=== PATIENT | male | born 1950 | race Caucasian/White ===

== ENCOUNTER 2020-01-03 20:29 | Inpatient (IN) | payer OTHER, MEDICARE ==
[~2020-01-03] VITALS: Ht 172.7 cm; Wt 88.9 kg
[2020-01-03 20:30] VITALS: BP 240/125
[2020-01-03 21:14] LABS: BE -9.1 mmol/L (-2 to +3); PO2 86.3 mmHg (75.0-100.0)
[2020-01-03 21:18] LABS: pH 7.066 (7.340-7.450)
[2020-01-03 21:22] LABS: ABSOLUTE EOSINOPHILS 0.2 thou/uL (0.0-0.7); ABSOLUTE LYMPHOCYTES 3.8 thou/uL (0.8-5.3); ABSOLUTE MONOCYTES 0.6 thou/uL (0.0-1.2); ABSOLUTE NEUTROPHILS 4.4 thou/uL (1.6-8.1); BASOPHILS 0.6 %; EOSINOPHILS 2.2 %; HEMATOCRIT 47.2 % (42.0-52.0); HEMOGLOBIN 16.2 gm/dL (14.0-18.0); LYMPHOCYTES 42.1 %; MCHC 34.3 g/dL (28.0-37.0); MCV 93.4 fL (80.0-100.0); MONOCYTES 6.3 %; MPV 10.2 fl. (7.2-11.1); NUCLEATED RBCS 0 /100WBC; PLATELET COUNT* 144 thou/uL (150-400); POLYS 48.8 %; RBC 5.06 mil/uL (4.50-6.00); RDW-CV 14.3 % (10.5-14.5)
[2020-01-03 21:27] LABS: CALCIUM 8.3 mg/dL (8.5-10.1); CREATININE 1.7 mg/dL (0.6-1.3); POTASSIUM 4.4 mmol/L (3.5-5.1)
[2020-01-03 21:29] LABS: APTT 24.3 Seconds (25.0-31.3); INR 1.1; PROTIME 11.4 Seconds (9.20-11.50)
[2020-01-03 21:39] LABS: ALBUMIN 3.8 g/dL (3.4-5.0); TOTAL BILIRUBIN 0.5 mg/dL (<0.1-1.0); TOTAL PROTEIN 7.4 g/dL (6.4-8.2)
[2020-01-03] MEDS ORDERED: DURLAZA162.5 MG PO (22:32)
[2020-01-03] MEDS ORDERED: JANUVIA100 MG PO (22:33)
[2020-01-03] MEDS ORDERED: FENOFIBRATE PO (22:34)
[2020-01-03] MEDS ORDERED: LIPITOR40 MG PO (22:34)
[2020-01-03] MEDS ORDERED: HYDROCHLORIZIDE PO (22:35)
[2020-01-03 22:36] LABS: BE -9.6 mmol/L (-2 to +3)
[2020-01-03] MEDS ORDERED: AVAPRO 150 MG150 MG PO (22:36)
[2020-01-03 22:37] LABS: pH 7.075 (7.340-7.450)
[2020-01-03] MEDS ORDERED: CARVEDILOL PO (22:37)
[2020-01-03 22:38] LABS: PCO2 77.9 mmHg (35.0-45.0); PO2 170.3 mmHg (75.0-100.0)
[2020-01-03] MEDS ORDERED: METFORMIN HCL500 M3 PO (22:38)
[2020-01-03] MEDS ORDERED: CATAPRES0.2 MG PO (22:38)
[2020-01-03 22:54] VITALS: BP 183/85
[2020-01-03 23:31] VITALS: BP 147/89
[2020-01-03 23:46] VITALS: BP 138/87
[2020-01-04] VITALS (52 sets, daily range): BP systolic 117–181; BP diastolic 56–98
[2020-01-04 06:16] LABS: BE -4.8 mmol/L (-2 to +3); PCO2 43.9 mmHg (35.0-45.0); pH 7.306 (7.340-7.450)
[2020-01-04 06:23] LABS: PO2 140.6 mmHg (75.0-100.0)
--- NOTE | 2020-01-04 10:18 | EKG ---
[place] [address] ELECTROCARDIOGRAM REPORT Name: WILBERT YANG Room: [address] ADM IN [facility].#: [id number] Admission: 01/03/20 Attend Phys: Brandy Da Silva, Discharge: Date of : 46 Date of Service: 01/03/202035 Report #: [id number] THIS REPORT FOR: //name// [facility] ED Test Date: 2020-01-03 Test Time: 20:36:48 Pat Name: WILBERT YANG Department: Room: [facility] Gender: M [employer] Technician: BROOKE : 1950 Requested By: Gen Pulido Order Number: [id number] MD: Ady Rubi Measurements Intervals [place] Rate: 77 P: 57 MA: 237 QRS: 47 QRSD: 146 T: 200 QT: 394 QTc: 446 Interpretive Statements Sinus rhythm Prolonged MA interval Probable left atrial enlargement Left bundle branch block Baseline wander in lead(s) II No previous ECG available for comparison Electronically Signed On 01-04-2020 10:18:20 CDT by Ady Rubi [email or web address] <ELECTRONICALLY SIGNED> By: Ady Rubi MD, FACC 01/04/20 1018 35 35 Ayd Rubi MD, [facility] /EPI
[2020-01-04 10:52] LABS: AMP/METHAMP Negative (Negative); BARBITURATES Negative (Negative); BENZODIAZEPINES Negative (Negative); COCAINE Negative (Negative); METHADONE Negative (Negative); OPIATES Negative (Negative); PCP Negative (Negative); THC POSITIVE (Negative)
[2020-01-04 12:27] LABS: MCHC 35.1 g/dL (28.0-37.0); MCV 91.2 fL (80.0-100.0); MPV 9.5 fl. (7.2-11.1); NUCLEATED RBCS 0 /100WBC; PLATELET COUNT* 92 thou/uL (150-400); RBC 4.38 mil/uL (4.50-6.00); WBC 6.6 thou/uL (4.0-11.0)
[2020-01-04 13:33] LABS: URINE BILIRUBIN NEGATIVE (Negative); URINE BLOOD NEGATIVE (Negative); URINE CLARITY CLEAR; URINE COLOR YELLOW; URINE GLUCOSE-RANDOM NEGATIVE (Negative); URINE KETONES TRACE (Negative); URINE LEUKOCYTES-REFLEX TRACE (Negative); URINE NITRITE-REFLEX NEGATIVE (Negative); URINE PROTEIN 1+ (Negative); URINE SPECIFIC GRAVITY 1.025 (1.005-1.030); URINE UROBILINOGEN 0.2 E.U./dl (0.2-1.0)
[2020-01-04 13:38] LABS: ABSOLUTE LYMPHOCYTES 0.4 thou/uL (0.8-5.3); ABSOLUTE MONOCYTES 0.1 thou/uL (0.0-1.2); ABSOLUTE NEUTROPHILS 6.1 thou/uL (1.6-8.1); ANISOCYTOSIS 1+; PLATELET ESTIMATE DECREASED; POIKILOCYTOSIS 1+
[2020-01-04 13:43] LABS: CREATININE 1.7 mg/dL (0.6-1.3); POTASSIUM 3.2 mmol/L (3.5-5.1)
[2020-01-04 13:52] LABS: SQUAMOUS >10 Many /LPF (0-3)
[2020-01-04 13:53] LABS: BACTERIA-REFLEX 1-9 Few /HPF (None Seen); CRYSTALS None Seen /LPF (None Seen); HYALINE CASTS 0-3 Few /LPF (None Seen); MUCUS None Seen strn/LPF (None Seen); URINE RBC 3-10 Few /HPF (0-2); URINE WBC-REFLEX 0-5 Rare /HPF (0-5)
[2020-01-04 13:53] LABS: ALBUMIN 3.4 g/dL (3.4-5.0); MAGNESIUM 1.6 mg/dL (1.8-2.4); PHOSPHORUS* 1.5 mg/dL (2.5-4.9); TOTAL BILIRUBIN 0.5 mg/dL (<0.1-1.0); TOTAL PROTEIN 6.4 g/dL (6.4-8.2)
--- NOTE | 2020-01-04 16:48 | 2DMMODE ---
[place] [address] 2 D/M-MODE ECHOCARDIOGRAM Name: WILBERT YANG Room: [address] ADM IN M.R.#: [id number] Admission: 01/03/20 Attend Phys: Brandy Da Silva, Discharge: Date of : 46 Date of Service: 01/04/20 1647 Report #: [id number] THIS REPORT FOR: cc: Kobe Loza,Kobe Henderson,Ady Scott MD [facility] ~ APPROVED REPORT Study performed: 01/04/2020 14:17:42 EXAM: Limited 2D, Doppler, and color-flow Echocardiogram Patient Location: Bedside BSA: 2.11 BP: 143/85 mmHg Other Information Study Quality: Adequate Indications Dyspnea 2D Dimensions IVSd: 21.61 (7-11mm) LVOT Diam: 22.43 (18-24mm) LVDd: 42.11 mm PWd: 13.45 (7-11mm) Ascending Ao: 31.04 (22-36mm) LVDs: 35.86 (25-40mm) Aortic Root: 27.34 mm Volumes Left Atrial Volume (Systole) LA ESV Index: 15.50 mL/m2 Aortic Valve AoV Peak Milo.: 1.07 m/s AO Peak Gr.: 4.57 mmHg LVOT Max P.71 mmHg AO Mean Gr.: 2.76 mmHg LVOT Mean P.62 mmHg LVOT Max V: 0.96 m/s AO V2 VTI: 16.86 cm LVOT Mean V: 0.57 m/s RORO (VTI): 4.22 cm2 LVOT V1 VTI: 18.03 cm Mitral Valve E/A Ratio: 1.13 MV Decel. Time: 234.13 [place] [address] 2 D/M-MODE ECHOCARDIOGRAM Name: WILBERT YANG Room: [address] IN [facility]#: [id number] Admission: 01/03/20 Attend Phys: Brandy Da Silva, Discharge: Date of : 46 Date of Service: 01/04/20 1647 Report #: [id number] MV E Max Milo.: 0.50 m/s MV PHT: 67.90 ms MVA (PHT): 3.24 cm2 Pulmonary Valve PV Peak Milo.: 1.40 m/s PV Peak Gr.: 7.83 mmHg Tricuspid Valve RAP Estimate: 5.00 mmHg TR Peak Gr.: 17.27 mmHg RVSP: 22.27 mmHg PA Pressure: 22.27 mmHg Left Ventricle The left ventricle is normal size. Mild concentric left ventricular hypertrophy. Left ventricular systolic function is borderline. Right Ventricle The right ventricle is normal size. The right ventricular systolic function is normal. Atria The left atrium size is normal. Interatrial septum not well visualized. The right atrium size is normal. Aortic Valve The Aortic valve is sclerotic. No aortic regurgitation is present. There is no aortic valvular stenosis. Mitral Valve The mitral valve is normal in structure. There is no mitral valve regurgitation noted. No evidence of mitral valve stenosis. Tricuspid Valve The tricuspid valve is normal in structure. Trace tricuspid regurgitation. Pulmonic Valve Pulmonic valve is not well visualized. There is no pulmonic valvular regurgitation. Great Vessels The aortic root is normal in size. Aortic arch is not visualized. IVC is normal in size and collapses >50% with inspiration[place] [address] 2 D/M-MODE ECHOCARDIOGRAM Name: JEISON YANGASHWIN Galeano Room: [address] IN .R.#: [id number] Admission: 01/03/20 Attend Phys: Brandy Da Silva, Discharge: Date of : 46 Date of Service: 01/04/201646 Report #: [id number] There is no pericardial effusion. <Conclusion> Mild concentric left ventricular hypertrophy. Left ventricular systolic function is borderline. The Aortic valve is sclerotic. <ELECTRONICALLY SIGNED> By: Ady Rubi MD, [facility] 01/04/201646 46 46 Ady Rubi MD, FACC /INF
[2020-01-05] VITALS (67 sets, daily range): BP systolic 128–255; BP diastolic 35–153
[2020-01-05 04:27] LABS: ABSOLUTE LYMPHOCYTES 0.7 thou/uL (0.8-5.3); ABSOLUTE MONOCYTES 0.5 thou/uL (0.0-1.2); ABSOLUTE NEUTROPHILS 7.9 thou/uL (1.6-8.1); BASOPHILS 0.3 %; HEMATOCRIT 37.6 % (42.0-52.0); HEMOGLOBIN 13.5 gm/dL (14.0-18.0); LYMPHOCYTES 7.4 %; MCH 32.8 pg (26.0-34.0); MCHC 35.8 g/dL (28.0-37.0); MCV 91.7 fL (80.0-100.0); MONOCYTES 5.4 %; MPV 9.7 fl. (7.2-11.1); NUCLEATED RBCS 0 /100WBC; PLATELET COUNT* 90 thou/uL (150-400); POLYS 86.9 %; RDW-CV 14.6 % (10.5-14.5); WBC 9.1 thou/uL (4.0-11.0)
[2020-01-05 04:48] LABS: ALBUMIN 3.2 g/dL (3.4-5.0); ALKALINE PHOSPHATASE 26 U/L (46-116); ANION GAP 10 mmol/L (7-16); BUN 38 mg/dL (7-18); CALCIUM 7.8 mg/dL (8.5-10.1); CHLORIDE 107 mmol/L (98-107); CHOLESTEROL 126 mg/dL (<200); CO2 25 mmol/L (21-32); CREATININE 1.9 mg/dL (0.6-1.3); GLUCOSE 163 mg/dL (70-99); HDL CHOLESTEROL 22 mg/dL (>40); MAGNESIUM 2.1 mg/dL (1.8-2.4); POTASSIUM 3.5 mmol/L (3.5-5.1); SGPT 28 U/L (30-65); SODIUM 142 mmol/L (136-145); TC:HDL 5.7 Ratio (Not establshd); TOTAL BILIRUBIN 0.4 mg/dL (<0.1-1.0); TOTAL PROTEIN 6.1 g/dL (6.4-8.2); TRIGLYCERIDE 403 mg/dL (<150); VLDL 81 mg/dL (<40)
[2020-01-05 04:50] LABS: PHOSPHORUS* 3.4 mg/dL (2.5-4.9); SERUM ASSESSMENT CLEAR
[2020-01-05 05:38] LABS: SGOT 31 U/L (15-37)
[2020-01-05 08:35] LABS: BE -2.7 mmol/L (-2 to +3); PCO2 29.7 mmHg (35.0-45.0); PO2 74.3 mmHg (75.0-100.0); pH 7.449 (7.340-7.450)
[2020-01-05 16:19] LABS: CREATININE 1.9 mg/dL (0.6-1.3); MAGNESIUM 2.1 mg/dL (1.8-2.4); POTASSIUM 4.3 mmol/L (3.5-5.1)
[2020-01-06] VITALS (32 sets, daily range): BP systolic 143–239; BP diastolic 44–154
[2020-01-06 05:26] LABS: ABSOLUTE LYMPHOCYTES 0.5 thou/uL (0.8-5.3); ABSOLUTE MONOCYTES 0.4 thou/uL (0.0-1.2); ABSOLUTE NEUTROPHILS 5.5 thou/uL (1.6-8.1); BASOPHILS 0.3 %; HEMATOCRIT 35.7 % (42.0-52.0); HEMOGLOBIN 12.7 gm/dL (14.0-18.0); LYMPHOCYTES 8.5 %; MCH 32.5 pg (26.0-34.0); MCHC 35.5 g/dL (28.0-37.0); MCV 91.6 fL (80.0-100.0); MPV 9.6 fl. (7.2-11.1); NUCLEATED RBCS 0 /100WBC; PLATELET COUNT* 75 thou/uL (150-400); POLYS 85.2 %; RDW-CV 13.8 % (10.5-14.5); WBC 6.4 thou/uL (4.0-11.0)
[2020-01-06 05:51] LABS: ALBUMIN 3.1 g/dL (3.4-5.0); CALCIUM 7.9 mg/dL (8.5-10.1); CREATININE 1.7 mg/dL (0.6-1.3); POTASSIUM 3.9 mmol/L (3.5-5.1); TOTAL BILIRUBIN 0.4 mg/dL (<0.1-1.0); TOTAL PROTEIN 5.9 g/dL (6.4-8.2)
--- NOTE | 2020-01-06 16:07 | CON ---
[address] [address] CONSULTATION Name: WILBERT YANG [place] Room: [address] ADM IN M.R.#: [id number] Admission: 01/03/20 Attend Phys: Brandy Da Silva MD Discharge: Date of : 46 Report #: [id number] THIS REPORT FOR: //name// cc: Kobe Loza Steve T. DO ~ THIS REPORT FOR: //name// CC: Brandy Loza DATE OF SERVICE: 01/04/2020 CARDIOLOGY CONSULTATION HISTORY OF PRESENT ILLNESS: The patient is a 69-year-old white male whom I was asked to see in the hospital today after he was noted to have an abnormal troponin. The history is obtained from some current notes. The patient is currently intubated and unresponsive. There are no family members available. According to the chart, the patient was brought to the Emergency Room yesterday by ambulance. His called the EMS because the patient is short of breath and diaphoretic. Apparently, they had been in a baseball game last night and after walking to the car, he became short of breath and they drove to the ambulance station. The patient was found to be hypoxic, was placed on CPAP and brought to the Emergency Room. Apparently, the patient had no history of chest pain, fever, or cough. On arrival, he was intubated in the Emergency Room and admitted to the ICU. I was asked to see him for further evaluation and treatment. The patient does have a history of hyperlipidemia, hypertension, and diabetes. MEDICATIONS: On admission include aspirin, Januvia, fenofibrate, atorvastatin, hydrochlorothiazide, Avapro, carvedilol, metformin, and clonidine. REVIEW OF SYSTEMS: Cannot be obtained. FAMILY HISTORY: Unobtainable. PHYSICAL EXAMINATION: GENERAL: Revealed an elderly male, lying in bed. He was intubated. VITAL SIGNS: He had a blood pressure of 140/80, pulse of 60. He was afebrile. HEENT: He was anicteric. Conjunctivae pink. Mucous membranes moist. NECK: Veins do not appear distended. CHEST: Clear to auscultation. CARDIOVASCULAR: Regular rate and rhythm without murmur. ABDOMEN: Soft. EXTREMITIES: Had no pedal edema. [place]IN: [place] [address] CONSULTATION Name: WILBERT YANG [place] Room: [address]#: [id number] Admission: 01/03/20 Attend Phys: Brandy Da Silva MD Discharge: Date of : 46 Report #: [id number] NEUROLOGIC: He was unresponsive to painful stimuli. DIAGNOSTIC DATA: His ECG showed a sinus rhythm with a left bundle-branch block. His workup on admission included a portable chest x-ray that showed prominent perihilar infiltrates suspicious for COVID-19. LABORATORY DATA: Sodium 140, BUN 20, creatinine 1.7, and glucose 312. His troponin 0.13 on admission, 0.34 this morning. BNP 3131. White blood cell count 9.0, hemoglobin 16.2. IMPRESSION AND RECOMMENDATIONS: 1. Shortness of breath. Possible pneumonia. Possible COVID-19. I would obtain echocardiogram. 2. Hypertension. The patient has been on diuretic, ARB, and beta shanda, clonidine. 3. Diabetes. 4. Hyperlipidemia. The patient is on fenofibrate for high triglycerides and atorvastatin for high cholesterol. 5. Chronic kidney disease. 6. Borderline troponin. No evidence of angina. I would obtain echocardiogram. <ELECTRONICALLY SIGNED> By: Ady Rubi MD, FACC 01/06/20 1607 0834 [id number] Rubi MD, FACC /nt
[2020-01-06 23:06] LABS: MYCOPLASMA PNEUMONIA IgG 295 U/mL (0-99); MYCOPLASMA PNEUMONIA IgM <770 U/mL (0-769)
[2020-01-07] VITALS (34 sets, daily range): BP systolic 128–218; BP diastolic 65–145
[2020-01-07 05:47] LABS: ABSOLUTE LYMPHOCYTES 0.4 thou/uL (0.8-5.3); ABSOLUTE MONOCYTES 0.3 thou/uL (0.0-1.2); ABSOLUTE NEUTROPHILS 5.3 thou/uL (1.6-8.1); BASOPHILS 0.1 %; HEMOGLOBIN 12.5 gm/dL (14.0-18.0); LYMPHOCYTES 6.4 %; MCH 31.2 pg (26.0-34.0); MCHC 33.8 g/dL (28.0-37.0); MCV 92.2 fL (80.0-100.0); MONOCYTES 5.1 %; MPV 9.2 fl. (7.2-11.1); NUCLEATED RBCS 0 /100WBC; PLATELET COUNT* 80 thou/uL (150-400); POLYS 88.4 %; RBC 4.01 mil/uL (4.50-6.00); RDW-CV 14.3 % (10.5-14.5)
[2020-01-07 06:55] LABS: CALCIUM 7.8 mg/dL (8.5-10.1); CREATININE 1.3 mg/dL (0.6-1.3); POTASSIUM 3.6 mmol/L (3.5-5.1); TOTAL BILIRUBIN 0.5 mg/dL (<0.1-1.0); TOTAL PROTEIN 5.7 g/dL (6.4-8.2)
[2020-01-08] VITALS (28 sets, daily range): BP systolic 112–207; BP diastolic 64–104
[2020-01-08 04:30] LABS: HEMATOCRIT 35.6 % (42.0-52.0); HEMOGLOBIN 12.1 gm/dL (14.0-18.0); MCH 31.3 pg (26.0-34.0); MCHC 33.9 g/dL (28.0-37.0); MCV 92.2 fL (80.0-100.0); MPV 9.2 fl. (7.2-11.1); NUCLEATED RBCS 0 /100WBC; PLATELET COUNT* 69 thou/uL (150-400); RBC 3.87 mil/uL (4.50-6.00); RDW-CV 14.3 % (10.5-14.5); WBC 3.6 thou/uL (4.0-11.0)
[2020-01-08 05:04] LABS: ALBUMIN 3.1 g/dL (3.4-5.0); CALCIUM 7.8 mg/dL (8.5-10.1); CREATININE 1.4 mg/dL (0.6-1.3); POTASSIUM 4.1 mmol/L (3.5-5.1); TOTAL BILIRUBIN 0.5 mg/dL (<0.1-1.0)
[2020-01-08 05:57] LABS: ABSOLUTE LYMPHOCYTES 0.1 thou/uL (0.8-5.3); ABSOLUTE MONOCYTES 0.1 thou/uL (0.0-1.2); ABSOLUTE NEUTROPHILS 3.3 thou/uL (1.6-8.1)
[2020-01-08 05:58] LABS: PLATELET ESTIMATE DECREASED
[2020-01-09] VITALS (8 sets, daily range): BP systolic 138–202; BP diastolic 73–93
[2020-01-09 03:05] LABS: GLYCOHEMOGLOBIN (HGB A1C) 5.9 % (4.8-5.6)
[2020-01-09 12:16] LABS: ABSOLUTE LYMPHOCYTES 0.2 thou/uL (0.8-5.3); ABSOLUTE MONOCYTES 0.3 thou/uL (0.0-1.2); ABSOLUTE NEUTROPHILS 3.9 thou/uL (1.6-8.1); BASOPHILS 0.1 %; HEMATOCRIT 38.1 % (42.0-52.0); LYMPHOCYTES 4.6 %; MCH 31.4 pg (26.0-34.0); MCHC 34.1 g/dL (28.0-37.0); MCV 92.2 fL (80.0-100.0); MONOCYTES 6.8 %; MPV 9.1 fl. (7.2-11.1); NUCLEATED RBCS 0 /100WBC; PLATELET COUNT* 74 thou/uL (150-400); POLYS 88.5 %; RBC 4.13 mil/uL (4.50-6.00); WBC 4.4 thou/uL (4.0-11.0)
[2020-01-09] MEDS ORDERED: HYDROCHLOROTHIA25 M1 PO (12:19)
[2020-01-09] MEDS ORDERED: CARDIZEM CD120 MG PO (12:19)
[2020-01-09] MEDS ORDERED: PREDNISONE 10 M10 MG PO (12:19)
[2020-01-09] MEDS ORDERED: CATAPRES0.2 MG PO (12:19)
[2020-01-09] MEDS ORDERED: PROTONIX40 M4 PO (12:19)
[2020-01-09] MEDS ORDERED: PROAIR HFA8.5 GM INH (12:19)
[2020-01-09] MEDS ORDERED: DOXYCYCLINE 10100 MG PO (12:19)
[2020-01-09 12:25] LABS: CALCIUM 8.3 mg/dL (8.5-10.1); CREATININE 1.2 mg/dL (0.6-1.3); POTASSIUM 3.8 mmol/L (3.5-5.1)
[2020-01-09 12:30] LABS: ALBUMIN 3.2 g/dL (3.4-5.0); TOTAL BILIRUBIN 0.7 mg/dL (<0.1-1.0); TOTAL PROTEIN 5.9 g/dL (6.4-8.2)
[2020-01-10] VITALS: BP 191/87
[2020-01-10 04:00] VITALS: BP 155/71
[2020-01-10 08:00] VITALS: BP 167/80
[2020-01-10] MEDS ORDERED: CARDIZEM CD120 MG PO (11:54)
[2020-01-10 12:11] VITALS: BP 169/76
--- NOTE | 2020-01-12 12:21 | CON ---
[address] [address] CONSULTATION Name: WILBERT YANG [place] Room: [address] IN M.R.#: [id number] Admission: 01/03/20 Attend Phys: Brandy Da Silva MD Discharge: 01/10/20 Date of : 46 Report #: [id number] THIS REPORT FOR: //name// cc: Kobe Loza Steve T. DO ~ THIS REPORT FOR: //name// CC: Brandy Loza DATE OF SERVICE: 01/04/2020 CONSULT REQUESTED BY: Dallin Alvarez MD INDICATION FOR CONSULTATION: Acute hypercarbic and hypoxemic respiratory failure. HISTORY OF PRESENT ILLNESS: A 69-year-old gentleman. His past medical history includes a history of diabetes, hypertension as well as COPD. He is an active smoker. I do not have the patient's baseline creatinine available. The patient was reported to be at a baseball game yesterday when he suddenly developed acute shortness of breath and developed respiratory distress. The patient was placed on a CPAP and brought to the Emergency Room. He required emergent endotracheal intubation. The patient's blood pressure is initially noted to be markedly elevated to 240/125. The patient currently is sedated with propofol and is on the ventilator. The patient currently has blood pressure within the normal range. In addition to propofol he only received 1 dose of hydralazine last night. Otherwise, he has not received any other antihypertensives. The patient does not have any swelling of lower extremities or calf pain. He is not reported to have any respiratory complaints prior to this acute respiratory distress developing last evening. The patient is on the ventilator and is unable to provide a further history or review of systems. PAST MEDICAL HISTORY: COPD, hypertension, diabetes, and hyperlipidemia. I do not have his baseline creatinine available. SOCIAL HISTORY: He is an active smoker, more than a pack a day, has smoked for several decades. No known history of heavy alcohol use or illegal drug use. CURRENT MEDICATIONS: List in [facility] reviewed. HOME MEDICATIONS: List in [facility] reviewed. FAMILY HISTORY: There is no pertinent family history. ALLERGIES: There [place] [address] CONSULTATION Name: WILBERT YANG Room: [address]#: [id number] Admission: 01/03/20 Attend Phys: Brandy Da Silva MD Discharge: 01/10/20 Date of : 46 Report #: [id number] PHYSICAL EXAMINATION: VITAL SIGNS: He required oxygen up to 80% during the night; however, his O2 saturations have improved and we have now titrated him down to 50%. He is on 5 of PEEP with tidal volume of 550 and an AC rate set at 18. The patient was not overbreathing the ventilator at the time of my examination, he is on a propofol infusion sedated to around RAST -2. Pulse rate 61 with a blood pressure of 143/85. He is afebrile with a temperature of 36.9. HEENT: Head is normocephalic and atraumatic. Pupils are bilaterally constricted, but equal. NECK: Does not show raised JVP, asymmetry, mass or lymph nodes. CHEST: Mildly decreased breath sounds bilaterally. Breath sounds bilaterally equal. No added sounds. HEART: Regular. There is no murmur. ABDOMEN: Soft and nontender. EXTREMITIES: Lower extremities show no edema, no calf tenderness. SKIN: Dry and intact. NEUROLOGICAL: Moves all extremities bilaterally equally and spontaneously with no focal deficit identified. LABORATORY DATA: The patient's chest x-ray from last night is reviewed. It shows an acute pulmonary edema pattern, infiltrates secondary to COVID-19 would look the same. His x-ray of the abdomen does show massive dilatation on his stomach. There is an OG in good position. The patient's CBC as well as chemistries from last night are in [facility]. These are reviewed. Elevation in creatinine to 1.7 is noted. PT and PTT also in [facility] reviewed. Arterial blood gases consistent with acute hypoxemic and hypercarbic respiratory failure, pH initially 7.066 in [facility] reviewed. He was positive for marijuana on his drug screen. I do not have a urinalysis available. COVID-19 screen was negative. PCR is pending. Nasal MRSA swab is pending. The patient's troponins are noted to be only mildly elevated to up to 0.34. ASSESSMENT AND PLAN: 1. Acute hypoxemic and hypercarbic respiratory failure. It appears likely that the patient has acute pulmonary edema secondary to uncontrolled hypertension, which led to acute respiratory distress and respiratory failure. At this time, I would go ahead and titrate down his FiO2 further to 40% and see where we stand. We will also repeat labs and then assess as to whether weaning trial today could be considered or whether we need to wait until tomorrow morning. Labs as well as a chest x-ray from today are pending at this time, we will review and then advise further. We will follow propofol related labs as well. 2. Acute pulmonary edema with uncontrolled hypertension. Echocardiogram is pending at this time, patient's blood pressure is essentially within the normal range at this time as he is on propofol. He will likely need antihypertensive medications when we cut back propofol. Cardiology service is also on the case. 3. Acute renal failure. We will treat it as acute renal [place] [address] CONSULTATION Name: WILBERT YANG [place] Room: [address] IN ..#: [id number] Admission: 01/03/20 Attend Phys: Brandy Da Silva MD Discharge: 01/10/20 Date of : 46 Report #: [id number] a previous creatinine available, I do not however have a previous creatinine available. We will do a renal ultrasound, we will do urinalysis and culture. Creatinine needs to be followed and a repeat is ordered. The patient has received furosemide last night. Will need to reevaluate as to whether he needs more after repeating labs. 4. Pulmonary infiltrates/rule out COVID-19. He is on ceftriaxone. We also did administer one dose of Levaquin yesterday. We will also do urine for legionella antigen as well as a pneumococcal antigen and mycoplasma antibodies. If the patient's chest x-ray is not significantly better, then I intend to continue Levaquin. Potentially could discontinue ceftriaxone soon. We will follow. 5. Chronic obstructive pulmonary disease exacerbation, remains on Solu-Medrol as well as nebulized bronchodilators. We will cut back on steroid dose. 6. History of diabetes. 7. History of hypertension. 8. Deep venous thrombosis prophylaxis, Lovenox 9. Gastrointestinal prophylaxis, Protonix. 10. Gastric dilatation. This may be due to him being on a CPAP as well as bagging with an Ambu bag last night. A repeat x-ray abdomen is ordered now. The patient is critically ill at this time. The total time spent providing critical care to this patient today is 49 minutes. <ELECTRONICALLY SIGNED> By: Boaz Jacques MD 01/12/20 1221 1211 [id number] Jacques MD /nt
== END 2020-01-10 13:05 | disposition home or self-care (01) | DRG 208 ==
LOC: M.ERS 20:29 → EDBD 20:29 → M.TBA-ER 21:37 → M.ICU 21:37 → M.2W 01-08 23:37
PROVIDERS: Family Medicine; Internal Medicine; Internal Medicine Cardiovascular Disease; Internal Medicine Critical Care Medicine; ADMIT Internal Medicine; ATTEND Internal Medicine
PROC: 0BH17EZ Insertion of Endotracheal Airway into Trachea, Via Natural or Artificial Opening (ICD-10-PCS; 2020-01-03)
PROC: B548ZZA Ultrasonography of Superior Vena Cava, Guidance (ICD-10-PCS; 2020-01-03)
PROC: 02HV33Z Insertion of Infusion Device into Superior Vena Cava, Percutaneous Approach (ICD-10-PCS; 2020-01-03)
PROC: 5A1945Z Respiratory Ventilation, 24-96 Consecutive Hours (ICD-10-PCS; 2020-01-03)
PROC: 5A09457 Assistance with Respiratory Ventilation, 24-96 Consecutive Hours, Continuous Positive Airway Pressure (ICD-10-PCS; principal; 2020-01-05)
PROC: 5A09357 Assistance with Respiratory Ventilation, Less than 24 Consecutive Hours, Continuous Positive Airway Pressure (ICD-10-PCS; 2020-01-07)
PROC: 5A09357 Assistance with Respiratory Ventilation, Less than 24 Consecutive Hours, Continuous Positive Airway Pressure (ICD-10-PCS; 2020-01-08)
DX: J96.01 Acute respiratory failure with hypoxia (principal); J18.9 Pneumonia, unspecified organism; I50.31 Acute diastolic (congestive) heart failure; J81.0 Acute pulmonary edema; J44.1 Chronic obstructive pulmonary disease with (acute) exacerbation; I48.20 Chronic atrial fibrillation, unspecified; J44.0 Chronic obstructive pulmonary disease with (acute) lower respiratory infection; I13.0 Hypertensive heart and chronic kidney disease with heart failure and stage 1 through stage 4 chronic kidney disease, or unspecified chronic kidney disease; J96.02 Acute respiratory failure with hypercapnia; E11.22 Type 2 diabetes mellitus with diabetic chronic kidney disease; I16.0 Hypertensive urgency; E78.5 Hyperlipidemia, unspecified; K31.89 Other diseases of stomach and duodenum; F17.210 Nicotine dependence, cigarettes, uncomplicated; N18.9 Chronic kidney disease, unspecified; D69.6 Thrombocytopenia, unspecified; R16.2 Hepatomegaly with splenomegaly, not elsewhere classified; Z79.899 Other long term (current) drug therapy; Z79.82 Long term (current) use of aspirin; Z79.84 Long term (current) use of oral hypoglycemic drugs; Z28.21 Immunization not carried out because of patient refusal